=== PATIENT | female | born 1985 ===

== ENCOUNTER 2021-04-25 13:32 | Emergency (ER) | payer MEDICAID, OTHER ==
[~2021-04-25] VITALS: Ht 160 cm; Wt 61.2 kg
[2021-04-25 13:33] VITALS: BP 120/63
[2021-04-25] MEDS ORDERED: CATHFLO ACTIVASE (ALTEPLASE) 2 MG VIAL IV ONE (18:57)
[2021-04-25] MEDS ORDERED: HEPARIN 1,000 UNITS/ml 1ML VIAL ONE (19:13)
== END 2021-04-25 16:47 | disposition left against medical advice (07) ==
LOC: ER 13:32
DX: R05 Cough (principal); R51.9 Headache, unspecified; Z53.21 Procedure and treatment not carried out due to patient leaving prior to being seen by health care provider
CPT/HCPCS: J1644; J2997